=== PATIENT | female | born 1960 | race Hispanic/Latino ===

== ENCOUNTER → 2018-12-09 | Outpatient (CLI) | payer BC | END | disposition home or self-care (01) | LOC: RAH 15:45 | PROVIDERS: ATTEND Physical Medicine & Rehabilitation | DX: M47.816 Spondylosis without myelopathy or radiculopathy, lumbar region (principal); M41.87 Other forms of scoliosis, lumbosacral region; M48.07 Spinal stenosis, lumbosacral region; M25.78 Osteophyte, vertebrae | CPT/HCPCS: 72110 ==